=== PATIENT | female | born 1935 | race Caucasian/White ===

== ENCOUNTER 2017-03-20 11:13 | Emergency (ER) | payer MEDICARE ==
[~2017-03-20] VITALS: Ht 162.6 cm; Wt 52.0 kg
[~2017-03-20 11:13] MED LIST: BUSP10TA8 PO; FISH1000 PO; FLUO-1 PO; LOVA1TAB47 PO; TAB-TAB PO
[2017-03-20 11:15] VITALS: BP 140/58; PULSE 75; RESP 24; TEMP 97.9; O2SAT 96
--- NOTE | 2017-03-20 11:28 | PD ---
Physical Exam Date Seen by Provider: Mar 20, 2017 Time Seen by Provider: 11:24 Narrative 82-year-old female presents the emergency department with 3 day history of sharp left hip pain radiating to the foot since doing some yard work. Patient denies any specific injury, and pain is less when just sitting but bearing weight or twisting it is severe. At worst pain is 10 over 10. Patient states no specific weakness other than from the pain. Patient is allergic to codeine. X-rays of the left hip and pelvis are ordered. Vital signs are stable. Patient is awaiting bed placement. Data Data Last Documented VS Vital Signs Date Time Temp Pulse Resp B/P (MAP) Pulse Ox O2 Delivery O2 Flow Rate FiO2 03/20/17 11:15 97.9 75 24 140/58 (85) 96 Room Air [facility] Medical Record Reviewed: Yes Supervised Visit with DAWN: Yes Condition: Stable Corby Allen Mar 20, 2017 11:28
[2017-03-20] MEDS ORDERED: DEXAMETHASONE SOD PHOS 20 MG/5 ML VIAL IM ONE (11:45)
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
[2017-03-20] MEDS ORDERED: UNK MUSCLE RELAXER (12:35)
[2017-03-20] MEDS ORDERED: HYDROCODONE (12:35)
--- NOTE | 2017-03-20 12:40 | RADRPT ---
EXAM DATE/TIME: 03/20/2017 12:14 [facility] COMPARISON: No previous studies available for comparison. INDICATIONS : Left hip pain that radiates down left leg. No trauma. MEDICAL HISTORY : Sciatica SURGICAL HISTORY : None. ENCOUNTER: Initial ACUITY: 1 day PAIN SCORE: 10/10 LOCATION: Left pelvis FINDINGS: AP view of the pelvis with 2 views left hip joint demonstrate no fracture or dislocation. No signific ant degenerative changes present. Bones are mildly under mineralized. No soft tissue abnormality is s een. There is arterial vascular calcification. CONCLUSION: No acute finding is identified. Reyes Cordoba MD on March 20, 2017 at 12:37 Board Certified Radiologist. This report was verified electronically.
[2017-03-20] MEDS ORDERED: PRED10PA2 PO (12:46)
[2017-03-20] MEDS ORDERED: OXYC1CAP PO (12:46)
== END 2017-03-20 13:35 | disposition home or self-care (01) ==
LOC: NEPD 11:13
DX: M54.16 Radiculopathy, lumbar region (principal); X50.0XXA Overexertion from strenuous movement or load, initial encounter; Y93.H2 Activity, gardening and landscaping; Y92.096 Garden or yard of other non-institutional residence as the place of occurrence of the external cause
CPT/HCPCS: 73502; 96372; 99284; J1100

== ENCOUNTER 2017-05-25 09:09 | Emergency (ER) | payer MEDICARE ==
[~2017-05-25] VITALS: Ht 162.6 cm; Wt 51.0 kg
[~2017-05-25 09:09] MED LIST changes: -BUSP10TA8 PO; -FISH1000 PO; -FLUO-1 PO; +HYDROCODONE; -LOVA1TAB47 PO; +OXYC1CAP PO; +PRED10PA2 PO; -TAB-TAB PO; +UNK MUSCLE RELAXER
[2017-05-25 09:17] VITALS: BP 143/63; PULSE 67; RESP 16; TEMP 99; O2SAT 97
[2017-05-25] MEDS ORDERED: SODIUM CHLORIDE 0.9% FLUSH 5 ML FLUSH IV FLUSH PRN (09:30)
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
[2017-05-25 09:32] VITALS: BP 143/63; PULSE 66; RESP 16; O2SAT 97
[2017-05-25 10:04] LABS: AUTOMATED NEUTROPHIL # 6.8 TH/MM3 (1.8-7.7); BASOPHIL % 0.5 % (0.0-2.0); EOSINOPHIL # 0.2 TH/MM3 (0-0.4); EOSINOPHIL % 2.2 % (0.0-4.0); HEMATOCRIT 30.8 % (35.0-46.0); HEMO FLAGS DIFF FINAL; LYMPH % 16.8 % (9.0-44.0); LYMPHOCYTE # 1.6 TH/MM3 (1.0-4.8); MEAN CELL VOLUME 97.9 FL (80.0-100.0); MEAN CORPUSCULAR HEMOGLOBIN 32.9 PG (27.0-34.0); MEAN CORPUSCULAR HGB CONC 33.7 % (32.0-36.0); MONO % 9.7 % (0.0-8.0); NEUT % 70.8 % (16.0-70.0); PLATELET COUNT 426 TH/MM3 (150-450); RED BLOOD COUNT 3.14 MIL/MM3 (4.00-5.30); RED CELL DISTRIBUTION WIDTH 15.5 % (11.6-17.2); WHITE BLOOD COUNT 9.6 TH/MM3 (4.0-11.0)
[2017-05-25 10:07] LABS: APTT (PATIENT) 26.1 SEC (24.3-30.1); INTERNATIONAL NORMALIZED RATIO 0.9 RATIO; PROTHROMBIN TIME - PATIENT 10.2 SEC (9.8-11.6)
[2017-05-25 10:15] LABS: ANION GAP 5 MEQ/L (5-15); AST (GOT) 22 U/L (15-37); BLOOD UREA NITROGEN 22 MG/DL (7-18); CHLORIDE 105 MEQ/L (98-107); GLOMERULAR FILTRATION RATE 74 ML/MIN (>89); POTASSIUM 3.7 MEQ/L (3.5-5.1); SODIUM (NA) 140 MEQ/L (136-145)
--- NOTE | 2017-05-25 10:15 | RADRPT ---
EXAM DATE/TIME: 05/25/2017 09:56 [facility] COMPARISON: No previous studies available for comparison. INDICATIONS : Syncope x2 days ago, fell painful posterior chest and abdomen. MEDICAL HISTORY : None. SURGICAL HISTORY : Csection ENCOUNTER: Initial ACUITY: 2 days PAIN SCORE: 10/10 LOCATION: Bilateral chest FINDINGS: Mild diffuse interstitial prominence without significant focal pleural or parenchymal opacities. Card iomediastinal contours are within normal limits. Bony thorax is intact. CONCLUSION: 1. No acute cardiopulmonary disease. Armond Fontanez MD on May 25, 2017 at 10:12 Board Certified Radiologist. This report was verified electronically.
--- NOTE | 2017-05-25 10:19 | RADRPT ---
EXAM DATE/TIME: 05/25/2017 09:58 [facility] COMPARISON: No previous studies available for comparison. INDICATIONS : Lower abdomen pains and low back pains from fall. MEDICAL HISTORY : None. SURGICAL HISTORY : C section ENCOUNTER: Initial ACUITY: 2 days PAIN SCORE: 9/10 LOCATION: Bilateral abdomen FINDINGS: Supine and upright views of the abdomen were performed. Moderate amount of stool noted in the distal colon and rectum. No dilated loops of bowel. No air fluid levels are seen. Small calcifications in th e pelvis likely reflect phleboliths. The visualized lower lungs are clear. No evidence of free intra peritoneal gas. The osseous structures are grossly intact. CONCLUSION: 1. Moderate distal colonic stool may reflect constipation. 2. Otherwise, nonobstructive bowel gas pattern. Armond Fontanez MD on May 25, 2017 at 10:15 Board Certified Radiologist. This report was verified electronically.
--- NOTE | 2017-05-25 10:20 | RADRPT ---
EXAM DATE/TIME: 05/25/2017 10:07 [facility] COMPARISON: No previous studies available for comparison. INDICATIONS : Altered mental status. RADIATION DOSE: 31.50 CTDIvol (mGy) MEDICAL HISTORY : Hypertension. SURGICAL HISTORY : section. ENCOUNTER: Initial ACUITY: 1 day PAIN SCALE: 0/10 LOCATION: cranial TECHNIQUE: Multiple contiguous axial images were obtained of the head. Using automated exposure control and adj ustment of the mA and/or kV according to patient size, radiation dose was kept as low as reasonably a chievable to obtain optimal diagnostic quality images. DICOM format image data is available electro nically for review and comparison. FINDINGS: CEREBRUM: The ventricles are normal for age. No evidence of midline shift, mass lesion, hemorrhage or acute in farction. No extra-axial fluid collections are seen. POSTERIOR FOSSA: The cerebellum and brainstem are intact. The 4th ventricle is midline. The cerebellopontine angle i s unremarkable. EXTRACRANIAL: The visualized portion of the orbits is intact. SKULL: The calvaria is intact. No evidence of skull fracture. CONCLUSION: Normal examination. Reyes Garcia MD on May 25, 2017 at 10:17 Board Certified Radiologist. This report was verified electronically.
[2017-05-25 10:21] LABS: ALKALINE PHOSPHATASE 106 U/L (45-117); ALT (GPT) 18 U/L (10-53); TOTAL BILIRUBIN ADULT 0.6 MG/DL (0.2-1.0)
[2017-05-25 10:24] LABS: CREATINE KINASE 84 U/L (26-192)
[2017-05-25 10:52] LABS: BLOOD, URINE NEG (NEG); GLUCOSE,URINE NEG (NEG); KETONE, URINE NEG (NEG); NITRITE,URINE NEG (NEG); SQUAMOUS EPITHELIAL CELL URINE <1 /hpf (0-5); URINE COLOR LIGHT-YELLOW (YELLW/STRAW)
[2017-05-25 10:54] LABS: COMMENT (UR) CATH-CULT NOT IND; CULTURE IF INDICATED CATH CULTURE NOT IND
[2017-05-25 12:28] VITALS: BP 157/86; PULSE 70; RESP 16; O2SAT 97
[2017-05-25] MEDS ORDERED: HYDR-3366 PO (12:47)
[2017-05-25] MEDS ORDERED: VITA100018 PO (12:47)
[2017-05-25] MEDS ORDERED: DICL75TA PO (12:47)
[2017-05-25] MEDS ORDERED: POTA-163 PO (12:47)
[2017-05-25] MEDS ORDERED: METO1TAB9 PO (12:47)
[2017-05-25] MEDS ORDERED: CHOL1CAP34 PO (12:47)
[2017-05-25] MEDS ORDERED: FURO1TAB60 PO (12:47)
[2017-05-25] MEDS ORDERED: PAXI30TA7 PO (12:47)
[2017-05-25] MEDS ORDERED: LIPI40TA PO (12:47)
[2017-05-25] MEDS ORDERED: VALS1TAB70 PO (12:47)
[2017-05-25] MEDS ORDERED: DOXY100C PO (12:47)
[2017-05-25] MEDS ORDERED: PROT40TA PO (12:47)
[2017-05-25] MEDS ORDERED: ISOS30TA3 PO (12:47)
[2017-05-25] MEDS ORDERED: ASPI81TA16 PO (12:47)
[2017-05-25] MEDS ORDERED: ZOFR4TAB3 SL (12:47)
[2017-05-25] MEDS ORDERED: NORC5TAB PO (12:47)
[2017-05-25] MEDS ORDERED: FLUO1TAB3 PO (14:21)
[2017-05-25] MEDS ORDERED: LOVA40TA PO (14:21)
[2017-05-25] MEDS ORDERED: FOSA70TA PO (14:21)
[2017-05-25] MEDS ORDERED: NORV2.5T PO (14:21)
[2017-05-25] MEDS ORDERED: PERC5TAB12 PO (14:21)
[2017-05-25] MEDS ORDERED: LOSA50TA6 PO (14:21)
[2017-05-25] MEDS ORDERED: ENOX40P SQ (14:21)
[2017-05-25] MEDS ORDERED: CYCL10TA PO (14:21)
[2017-05-25] MEDS ORDERED: REST15CA PO (14:21)
[2017-05-25] MEDS ORDERED: ZOLO25TA PO (14:21)
[2017-05-25] MEDS ORDERED: HYDR-3288 PO (14:21)
--- NOTE | 2017-05-25 15:22 | EKG ---
Date Performed: 05/25/2017 Time Performed: 09:50:01 PTAGE: 82 years EKG: Sinus rhythm RIGHT BUNDLE BRANCH BLOCK ABNORMAL ECG NO PREVIOUS TRACING DOCTOR: Shirlene Townsend Interpretating Date/Time 05/25/2017 15:20:58
== END 2017-05-25 15:10 ==
LOC: NEPE 09:09
DX: K92.1 Melena (principal); R41.0 Disorientation, unspecified; I45.10 Unspecified right bundle-branch block; Z79.01 Long term (current) use of anticoagulants
CPT/HCPCS: 70450; 71010; 74020; 80053; 81001; 82550; 84484; 85025; 85610; 85730; 87040; 93005; 99285